=== PATIENT | female | born 1965 | race Caucasian/White ===

== ENCOUNTER 2016-04-26 16:19 | Emergency (ER) | payer OTHER | END 2016-04-26 17:59 | disposition home or self-care (01) | LOC: ER 16:19 | DX: J44.0 Chronic obstructive pulmonary disease with (acute) lower respiratory infection (principal); J20.9 Acute bronchitis, unspecified; Z99.81 Dependence on supplemental oxygen; F17.210 Nicotine dependence, cigarettes, uncomplicated; Z90.710 Acquired absence of both cervix and uterus; Z79.899 Other long term (current) drug therapy; Z79.891 Long term (current) use of opiate analgesic; Z88.1 Allergy status to other antibiotic agents; Z88.5 Allergy status to narcotic agent | CPT/HCPCS: 71020; 87400; 99283-25 ==